=== PATIENT | male | born 1960 | race Caucasian/White ===

== ENCOUNTER → 2017-06-25 | Day surgery (SDC) | payer OTHER ==
[~2017-06-25] MED LIST: ACETAZOLAMIDE250 MG PO; AMLODIPINE BESY10 MG PO; BETAMETHASONE A TOP; BUPIVACAINE 0.25%/EPI 30ML SDV INJ ONE; DEXAMETHASONE SOD PHOS INJ 4 MG/ML VIAL IV ONE; FENTANYL CITRATE/PF 100MCG/2 ML INJ ONE; LIDOCAINE HCL 1% LOCAL INJ 20 ML VIAL ONE; LIDOCAINE HCL 2% LOCAL INJ 5 ML SDV VIAL INJ ONE; MELOXICAM7.5 MG PO; MIDAZOLAM HCL 2 MG/2 ML VIAL ONE; ONDANSETRON HCL INJ 2 MG/ML VIAL IV ONE; PROPOFOL IV EMULSION 10 MG/ML 20 ML VIAL IV ONE; SEVOFLURANE INHAL SOLN 250 ML PEN BTL INH ONE; ULTRAM50 MG PO; Z.0.LEVOTHYROXINE25 PO
[2017-06-25 07:51] LABS: BASOPHILS # (AUTO) 0.1 (0.0-0.1); BASOPHILS % 0.8 % (0.0-1.0); EOSINOPHILS # (AUTO) 0.3 (0.0-0.4); EOSINOPHILS % 3.4 % (0.0-6.0); HEMATOCRIT 42.1 % (38.2-49.6); HEMOGLOBIN 14.3 g/dL (14.0-18.0); LYMPHOCYTES # (AUTO) 2.2 (1.0-3.2); LYMPHOCYTES % 23.9 % (18.0-39.1); MEAN CORPUSCULAR HEMOGLOBIN 28.4 pg (28-32); MEAN CORPUSCULAR VOLUME 83.7 fL (81-99); MONOCYTES # (AUTO) 0.7 (0.2-0.8); MONOCYTES % 8.1 % (4.4-11.3); NEUTROPHILS # (AUTO) 5.7 (2.1-6.9); NEUTROPHILS % 62.7 % (38.7-80.0); PLATELET COUNT 365 x10e3/uL (140-360); RED BLOOD COUNT 5.03 x10e6/uL (4.3-5.7); RED CELL DISTRIBUTION WIDTH 12.6 % (11.7-14.4)
--- NOTE | 2017-06-25 16:02 | Operative Report ---
DATE OF PROCEDURE: June 25, 2017 PREOPERATIVE DIAGNOSIS: Right inguinal hernia. POSTOPERATIVE DIAGNOSIS: Right direct hernia and indirect inguinal hernia. OPERATION PERFORMED: Repair for right inguinal hernia with large Prolene hernia system. ANESTHESIA: General. COMPLICATIONS: None. ESTIMATED BLOOD LOSS: Minimal. DESCRIPTION OF PROCEDURE: With the patient lying in bed in the supine position under good general anesthesia, the abdomen was prepped with Betadine solution and draped in the usual manner. Right inguinal incision was made. Was carried down through the subcutaneous tissue down to the external oblique aponeurosis and external oblique was opened along the length of its fibers and external inguinal ring was opened. The cord was then mobilized and retracted. Exploration of the cord revealed the presence of a small indirect hernia sac which was from the cord structures and imbricated with a purse-string suture of 2-0 Vicryl. In the direct space, there was a large bulging hernia that encompassed the entire floor. This was imbricated with a purse-string suture of 2-0 silk and reduced. After this was done, the preperitoneal space was entered right through the internal ring and a pocket was created without any difficulty. A large Prolene hernia system was placed in the preperitoneal space and the underlay patch was deployed without any problems. The overlay patch was then placed over the floor and split inferolaterally to allow for passage of the cord. The mesh was then sutured to the conjoined tendon and inguinal ligament using interrupted sutures of 2-0 Vicryl. All layers were infiltrated on the way out with solution of 1/4 percent Marcaine and 1% lidocaine mixed in equal parts. External oblique aponeurosis was closed with a running suture of 2-0 Vicryl. The subcutaneous tissue was approximated with 3-0 plain and the skin was closed with Dermabond skin closure system. The patient tolerated the procedure well and returned to the recovery room in stable condition. Job#: [id number]
== END | disposition home or self-care (01) ==
LOC: OR 06:46
PROVIDERS: ATTEND Surgery
DX: K40.90 Unilateral inguinal hernia, without obstruction or gangrene, not specified as recurrent (principal); E03.9 Hypothyroidism, unspecified; G72.3 Periodic paralysis; I10 Essential (primary) hypertension; N20.0 Calculus of kidney
CPT/HCPCS: 36415; 49505; 85025; 93005; C1781; J1100; J2001 ×2; J2250; J2405

== ENCOUNTER 2018-06-27 00:13 | Emergency (ER) | payer OTHER ==
[~2018-06-27] VITALS: Ht 167.6 cm; Wt 64.4 kg
[~2018-06-27 00:13] MED LIST changes: -BUPIVACAINE 0.25%/EPI 30ML SDV INJ ONE; -DEXAMETHASONE SOD PHOS INJ 4 MG/ML VIAL IV ONE; -FENTANYL CITRATE/PF 100MCG/2 ML INJ ONE; -LIDOCAINE HCL 1% LOCAL INJ 20 ML VIAL ONE; -LIDOCAINE HCL 2% LOCAL INJ 5 ML SDV VIAL INJ ONE; -MIDAZOLAM HCL 2 MG/2 ML VIAL ONE; -ONDANSETRON HCL INJ 2 MG/ML VIAL IV ONE; -PROPOFOL IV EMULSION 10 MG/ML 20 ML VIAL IV ONE; -SEVOFLURANE INHAL SOLN 250 ML PEN BTL INH ONE
[2018-06-27 01:06] LABS: BILIRUBIN,URINE NEGATIVE (NEGATIVE); CLARITY,URINE CLEAR (CLEAR); COLOR,URINE YELLOW (YELLOW); KETONES,URINE NEGATIVE (NEGATIVE); LEUKOCYTE ESTERASE ,URINE NEGATIVE (NEGATIVE); NITRITE,URINE NEGATIVE (NEGATIVE); PROTEIN,URINE DIPSTICK NEGATIVE (NEGATIVE); URINE UROBILINOGEN 0.2 mg/dL (0.2 - 1)
[2018-06-27 01:24] LABS: BACTERIA,URINE FEW /HPF; RBC,URINE 0-5 /HPF (0-5); WBC,URINE (MAN) 0-5 /HPF (0-5)
[2018-06-27 01:25] LABS: EPITHELIAL CELLS,URINE MODERATE /LPF
[2018-06-27] MEDS ORDERED: DIATRIZOATE MEGL/DIATRIZOA SOD 30 ML BTL PO ONE (01:34)
[2018-06-27 01:50] LABS: BASOPHILS # (AUTO) 0.1 (0.0-0.1); BASOPHILS % 0.6 % (0.0-1.0); EOSINOPHILS # (AUTO) 0.1 (0.0-0.4); EOSINOPHILS % 0.8 % (0.0-6.0); HEMATOCRIT 42.3 % (38.2-49.6); HEMOGLOBIN 14.4 g/dL (14.0-18.0); LYMPHOCYTES # (AUTO) 1.3 (1.0-3.2); LYMPHOCYTES % 8.8 % (18.0-39.1); MEAN CORPUSCULAR HEMOGLOBIN 28.9 pg (28-32); MEAN CORPUSCULAR VOLUME 84.8 fL (81-99); MONOCYTES # (AUTO) 1.2 (0.2-0.8); MONOCYTES % 8.1 % (4.4-11.3); NEUTROPHILS # (AUTO) 11.5 (2.1-6.9); PLATELET COUNT 296 x10e3/uL (140-360); RED BLOOD COUNT 4.99 x10e6/uL (4.3-5.7); RED CELL DISTRIBUTION WIDTH 12.5 % (11.7-14.4)
[2018-06-27] MEDS ORDERED: ONDANSETRON HCL INJ 2 MG/ML VIAL IV STA (02:24)
[2018-06-27] MEDS ORDERED: MORPHINE SULFATE INJ 4 MG/ML INJ ONE (02:28)
[2018-06-27] MEDS ORDERED: ONDANSETRON HCL INJ 2 MG/ML VIAL ONE (02:28)
[2018-06-27] MEDS ORDERED: MORPHINE SULFATE INJ 4 MG/ML INJ IV PRN (02:30)
[2018-06-27 02:44] LABS: ALANINE AMINOTRANSFERASE 19 IU/L (0-55); ALBUMIN/GLOBULIN RATIO 1.3 (0.8-2.0); ALKALINE PHOSPHATASE 91 IU/L (40-150); ANION GAP 12.4 mmol/L (8-16); BLOOD UREA NITROGEN 16 mg/dL (7-26); CALCIUM 9.1 mg/dL (8.4-10.2); CARBON DIOXIDE 17 mmol/L (22-29); CHLORIDE 111 mmol/L (98-107); GLUCOSE 123 mg/dL (74-118); POTASSIUM 3.4 mmol/L (3.5-5.1); SODIUM 137 mmol/L (136-145)
[2018-06-27 03:57] LABS: BUN/CREATININE RATIO 16 (6-25); CREATININE, SERUM 0.91 mg/dL (0.72-1.25); EST GLOMERULAR FILTRATION RATE > 60 ML/MIN (60-)
--- NOTE | 2018-06-27 05:00 | Diagnostic Imaging Report ---
EXAM: CT ABDOMEN/PELVIS W DATE: 06/27/2018 1:09 AM INDICATION: Abdominal pain COMPARISON: None TECHNIQUE: The abdomen and pelvis were scanned using a multidetector helical scanner. Coronal and sagittal reformations were obtained. CT low dose techniques were utilized, as applicable. IV Contrast: 100 ml Isovue 300/370 FINDINGS: LOWER THORAX: 4 mm bilateral lower lobe nodules. Left fat-containing Bochdalek hernia. LIVER/BILIARY: No masses. No ductal dilatation. GALLBLADDER: Unremarkable SPLEEN: Unremarkable PANCREAS: Unremarkable ADRENALS: No nodules KIDNEYS: Nonobstructing right renal calculi measuring up to 5 mm. No right hydronephrosis. Mildly delayed left nephrogram with mild hydroureteronephrosis and perinephric and periureteral inflammatory changes related to a 4-5 mm stone near the UVJ. Additional nonobstructing 2 to 3 mm stone in the distal left ureter. GI TRACT: No wall thickening or evidence of obstruction. Diverticulosis. Normal appendix. VESSELS: Unremarkable PERITONEUM/RETROPERITONEUM: No free air LYMPH NODES: No lymphadenopathy REPRODUCTIVE ORGANS/BLADDER: Slight median lobe hypertrophy of the prostate. Unremarkable bladder. SOFT TISSUES: Prior right inguinal hernia repair. Fat-containing left inguinal hernia. BONES: Abnormal curvature of the spine and multilevel degenerative changes. IMPRESSION: 5 mm left distal ureteral/UVJ calculus resulting in mild hydroureteronephrosis and inflammatory changes. Additional nonobstructing 3 mm stone in the distal left ureter. Signed by: Dr Jenni Carreno MD on 06/27/2018 4:57 AM
[2018-06-27] MEDS ORDERED: SODIUM CHLORIDE 0.9% 1000ML 1,000 ML IV SCH (05:15)
[2018-06-27] MEDS ORDERED: KETOROLAC TROMETHAMINE 30 MG/ML VIAL ONE (05:43)
[2018-06-27] MEDS ORDERED: KETOROLAC TROMETHAMINE 30 MG/ML VIAL IV STA (06:03)
[2018-06-27] MEDS ORDERED: FLOMAX0.4 MG PO (06:08)
[2018-06-27] MEDS ORDERED: ULTRAM50 MG PO (06:09)
[2018-06-27] MEDS ORDERED: SODIUM CHLORIDE 0.9% 50ML 50 ML ONE (06:21)
[2018-06-27] MEDS ORDERED: IOPAMIDOL 370 MG/ML 200 ML INFUS..BTL INJ ONE (06:21)
[2018-06-27 07:09] VITALS: BP 143/82
== END 2018-06-27 07:13 | disposition home or self-care (01) ==
LOC: ER 00:13
DX: N13.2 Hydronephrosis with renal and ureteral calculous obstruction (principal)
CPT/HCPCS: 36415; 74177; 80053; 81001; 85025; 96374; 96375; 99284; J1885; J2270; J2405; J7030; Q9663; Q9967